=== PATIENT | male | born 1985 | race African-American/Black ===

== ENCOUNTER 2017-01-24 16:54 | Emergency (ER) | payer OTHER ==
[~2017-01-24] VITALS: Ht 172.7 cm; Wt 70.0 kg
[2017-01-24] MEDS ORDERED: HALOPERIDOL LACTATE 5MG/ML VIAL IM STA (19:05)
[2017-01-24] MEDS ORDERED: LORAZEPAM 2MG/ML CPJ IM STA (19:05)
[2017-01-24 19:48] LABS: BASOPHILS % 0.7 % (0.0-2.0); EOSINOPHILS % 0.8 % (0.0-5.0); HEMOGLOBIN. 13.9 g/dL (14.0-18.0); LYMPHOCYTES % 40.4 % (20.0-50.0); MEAN CORPUSCULAR HEMOGLOBIN 30.3 pg (28.0-32.0); MEAN CORPUSCULAR VOLUME 89.1 fL (80.0-94.0); MEAN PLATELET VOLUME 9.2 fl (7.4-10.4); MONOCYTES % 9.3 % (2.0-8.0); NEUTROPHILS % 48.8 % (40.0-76.0); PLATELET 158 x1000/uL (130-400); RED BLOOD CELL COUNT 4.61 mill/uL (4.7-6.1); RED CELL DISTRIBUTION WIDTH 14.6 % (11.6-14.6)
[2017-01-24 19:54] LABS: CHLORIDE 105 mEq/L (98-107)
[2017-01-24 20:01] LABS: CARBON DIOXIDE 25 mEq/L (21-32); ETHANOL BLOOD < 10 mg/dL
[2017-01-24 20:40] LABS: CLARITY URINE CLEAR (CLEAR); COLOR URINE YELLOW (YELLOW); GLUCOSE URINE NEGATIVE (NEGATIVE); KETONES URINE 1+ (NEGATIVE); LEUKOCYTE ESTERASE URINE NEGATIVE (NEGATIVE); NITRITE URINE NEGATIVE (NEGATIVE); OCCULT BLOOD URINE 2+ (NEGATIVE); PH URINE 5.5 (4.5-8.0); PROTEIN URINE TRACE (NEGATIVE); SPECIFIC GRAVITY URINE 1.029 (1.005-1.030)
[2017-01-24 20:53] LABS: *AMPHETAMINES SCREEN URINE PRESUMTIVE POSITIVE (NEGATIVE); *BARBITURATES SCREEN URINE NEGATIVE (NEGATIVE); *BENZODIAZEPINES SCREEN URINE NEGATIVE (NEGATIVE); *COCAINE SCREEN URINE NEGATIVE (NEGATIVE); CANNABINOID URINE SCREEN PRESUMTIVE POSITIVE (NEGATIVE); METHADONE URINE SCREEN NEGATIVE (NEGATIVE); OPIATES URINE SCREEN NEGATIVE (NEGATIVE); PHENCYCLIDINE URINE SCREEN NEGATIVE (NEGATIVE)
[2017-01-25 10:26] VITALS: BP 146/80
== END 2017-01-25 12:32 | disposition home or self-care (01) ==
LOC: ER 17:23
DX: T43.621A Poisoning by amphetamines, accidental (unintentional), initial encounter (principal); R07.9 Chest pain, unspecified; I51.9 Heart disease, unspecified; D64.9 Anemia, unspecified; I44.0 Atrioventricular block, first degree; F12.10 Cannabis abuse, uncomplicated; R45.851 Suicidal ideations; F15.10 Other stimulant abuse, uncomplicated; Z88.6 Allergy status to analgesic agent; Z20.6 Contact with and (suspected) exposure to human immunodeficiency virus [HIV]; Y92.488 Other paved roadways as the place of occurrence of the external cause
CPT/HCPCS: 36415; 71010; 80053; 80305; 80307; 80329; 81001; 84484; 85025; 93005; 96372; 99285; G0482; J1630; J2060; Z7610; A4315